=== PATIENT | female | born 1990 | race Asian ===

== ENCOUNTER 2019-03-29 08:23 | Emergency (ER) | payer OTHER, SELFPAY ==
[2019-03-29 08:38] VITALS: BP 152/88; PULSE 96; TEMP 37; O2SAT 98; BMI 24.5
--- NOTE | 2019-03-29 09:00 | ED.PREGNANCY ---
HPI - General Chief complaint: OB/Uterine Contractions Stated complaint: day 3 miscarriage,heavy bleeding Time Seen by Provider: 03/29/19 08:31 Source: patient Mode of arrival: Ambulatory Limitations: no limitations History of Present Illness HPI Narrative: Patient comes emergency department complaining an increase bleeding since onset of miscarriage a few days ago. The patient was diagnosed with in IU of T2 weeks ago, and opted to allow it to pass on its own. She states her bleeding began several days ago with just a light bit of spotting, but that the bleeding has escalated to the point of intermittent severe cramping and gushes of blood and clots. Patient states that she already passed a fair amount of tissue, and that when her OB ultrasounded her 2 days ago, she just had some ?clots and fluid? in her uterus. Patient denies feeling lightheaded or short of breath. no chest pain. No weakness. Patient is otherwise healthy. This is her 1st . Patient denies any easy bruising or bleeding elsewhere. No other complaints at this time. The patient's OB, Dr. Pantoja, who is through the [facility] system, states that the patient is Rh positive. She is not on any pharmacologic agents to help the miscarriage along. Patient : Yes Related Data Allergies Allergy/AdvReac Type Severity Reaction Status Date / Time No Known Drug Allergies Allergy Verified 03/29/19 09:08 Review of Systems Constitutional Constitutional: Denies chills, Denies fatigue, Denies fever(s), Denies frequent falls, Denies lethargy and Denies weakness Eyes Eyes: Denies change in vision, Denies eye discharge, Denies irritation and Denies loss of vision ENT Ears, Nose, Mouth, and Throat: Denies change in voice, Denies dizziness, Denies neck pain, Denies sore throat and Denies throat swelling Cardiovascular Cardiovascular: Denies chest pain, Denies irregular heart rhythm, Denies lightheadedness, Denies palpitations, Denies dyspnea, Denies dyspnea on exertion and Denies orthopnea Respiratory Respiratory: Denies cough, Denies dyspnea, Denies dyspnea on exertion and Denies wheezing Gastrointestinal Gastrointestinal: Reports abdominal pain (Cramping), Denies change in bowel habits, Denies diarrhea, Denies nausea and Denies vomiting Genitourinary Genitourinary: Denies hematuria, Denies flank pain, Denies urinary incontinence and Denies urinary urgency Comments: Vaginal Musculoskeletal Musculoskeletal: Denies back pain, Denies muscle weakness, Denies neck pain, Denies numbness and Denies tingling Integumentary/Breasts Skin/Breast: Denies pruritus, Denies erythema, Denies rash and Denies wounds Neurologic Neurologic: Denies behavioral changes, Denies confusion, Denies dizziness, Denies frequent falls, Denies loss of vision, Denies numbness, Denies tingling and Denies weakness Psychiatric Psychiatric: Denies anxiety, Denies behavioral changes, Denies confusion, Denies depression, Denies homicidal ideation and Denies suicidal ideation Endocrine Endocrine: Denies fatigue, Denies flushing and Denies palpitations Hematologic/Lymphatic Hematologic/Lymphatic: Denies easy bruising Allergic/Immunologic Allergic/Immunologic: Denies urticaria, Denies throat swelling and Denies wheezing PMFSH - Past Medical History Medical history: Reports no medical history Surgical history: Reports no surgical history Patient : Yes Family History Family history: Reports no significant family history Exam Initial Vital Signs Initial Vital Signs: Vital Signs Temperature 98.6 F 03/29/19 08:38 Pulse Rate 96 H 03/29/19 08:38 Blood Pressure 152/88 H 03/29/19 08:38 Pulse Oximetry 98 03/29/19 08:38 Const General: cooperative and well developed Nutritional Appearance: well nourished Orientation: alert, awake, oriented x3 and not confused [facility] Head: normocephalic and atraumatic Ears: external ears normal Nose: external nose normal and No nasal discharge Face and sinus: face symmetric and No dry mucous membranes Mouth: oral mucosae normal and moist mucous membranes Teeth and gingiva: dentition normal Eyes General: appearance normal, both eyes and all related structures Eyelids: eyelids normal Conjunctivae: conjunctivae normal Sclera: sclerae normal Pupils: PERRL EOM: EOM intact bilaterally Neck Neck: normal visual inspection, trachea midline, No lymphadenopathy, No midline deformity and No JVD Lymphatic: No lymphedema Chest Chest: normal inspection of the chest Resp Effort & Inspection: normal respiratory effort, able to speak in complete sentences, no respiratory distress and no use of accessory muscles Auscultation: clear to auscultation bilaterally, no rales, no rhonchi and no wheezes Cardio Rate: regular rate Rhythm: regular rhythm Heart Sounds: no click, no gallops, no murmurs and no rubs Pulses: normal peripheral pulses GI Inspection: non-distended Palpation: soft, no hepatosplenomegaly, No guarding, No pulsatile mass and No tender Auscultation: normal bowel sounds External Female Exam: external appearance normal Speculum Exam - Vagina: vaginal bleeding (Moderate, with small clots in os) Speculum Exam - Cervix: cervical os open (1.5 cm) Bimanual Exam- Vagina & Uterus: normal bimanual exam and normal vaginal palpation Bimanual Exam- Adnexa, other: normal adnexae OB/External & Speculum: cervical os open (1.5 cm) and vaginal bleeding (Moderate, with small clots in os) Back/Spine/Pelvis Back: No CVA tenderness Cervical Spine: cervical ROM normal and No pain with cervical ROM Thoracic/Lumbar Spine: thoracic and lumbar spine normal to inspection Skin General: no rashes or lesions noted, No jaundice and No petechiae Neuro General: alert, oriented x3, gait normal and no focal motor deficits Speech: speech normal Extrem General: full ROM, no clubbing, cyanosis or edema, no pedal edema and no calf tenderness Psych Appearance: well kempt Mental Status: mental status grossly normal Attitude: cooperative Thought Content: normal and suicidality Judgment: judgment good Course Course Course Narrative: I spoke with Dr. Rodriguez prior to the patient's arrival, and after examining the patient she was re-evaluated with ultrasound. This did show a mild amount of clots and fluid in the patient's lower uterus. I spoke with Dr. Pantoja again, who stated that the patient follow up her in clinic within the next several days. Orders Ordered: Discontinued Medications Sodium Chloride (Normal Saline 0.9%) 1,000 mls @ 1,000 mls/hr IV BOLUS ONE Stop: 03/29/19 09:58 Last Infusion: 03/29/19 10:50 Dose: 0 mls/hr Documented by: Admin: 03/29/19 09:40 Dose: 1,000 mls/hr Documented by: JASON Vital Signs Vital signs: Vital Signs - 8 hr 03/29/19 08:38 Temperature 98.6 F Pulse Rate 96 H Blood Pressure 152/88 H Pulse Oximetry 98 MDM - OB/Uterine Contractions Medical Records Attestation: I reviewed the patient's medical records. Lab Data Attestation: I reviewed the patient's lab results. Result diagrams: 03/29/19 09:38 Labs: Lab Results 03/29/19 03/29/19 Range/Units 09:38 09:38 WBC 8.6 (4.5-11.0) X10^3/uL RBC 4.10 (4.0-5.2) X10^6/uL Hgb 12.9 (12.0-16.0) g/dL Hct 37.0 (36-46) % MCV 90.2 (80-100) fL MCH 31.5 (26-34) PG MCHC 34.9 (30-36) % RDW 12.0 (11.6-14.8) % Plt Count 222 (150-400) X10^3/uL Neut % (Auto) 85.0 H (50-75) % Lymph % (Auto) 10.6 L (25-40) % [place] % (Auto) 3.6 (3-14) % Eos % (Auto) 0.5 L (2-4) % Baso % (Auto) 0.3 (0-2) % Neut # (Auto) 7300 H (9297-8785) /uL Lymph # (Auto) 900 L (3140-3688) /uL [place] # (Auto) 300 (0-900) /uL Eos # (Auto) 0 (0-450) /uL Baso # (Auto) 0 (0-100) /uL PT 11.6 (10.1-12.7) SECONDS INR 1.0 (0.9-1.3) Imaging Data Ultrasound OB/pelvis: Radiologist's impression: PROCEDURE: US PELVIC COMPLETE INDICATIONS: AB IN PROGRESS; POSSIBLE RPOC TECHNIQUE: Real-time scanning was performed of the pelvic organs, with image documentation. Additional endovaginal scanning was necessary due to incomplete visualization of the adnexal and endometrial structures by transabdominal scanning. COMPARISON: None. FINDINGS: Transabdominal scanning: Limited scanning through the kidneys shows no hydronephrosis. No pathologic free abdominal or pelvic fluid. Endovaginal scanning: Uterus: Uterus is normal in size at 10.2 x 5.0 x 5.6 cm. The endometrium measures 12.7 mm in combined thickness. There is no visualized intrauterine . Complex focus of ill-defined fluid is present along the lower uterine segment. Ovaries: Right ovary measures 22 x 17 x 18 mm. It is unremarkable. Left ovary is not visualized. Adnexa is unremarkable. IMPRESSION: 1. No visualized intrauterine or ectopic . 2. Complex focus of heteroechogenicity within the lower uterine segment. It is suggestive of fluid. Given history, recommend continued interval followup the correlation with beta-hCG levels. Dictated by: Clarissa Nance M.D. on 03/29/2019 at 8:46 Approved by: Clarissa Nance M.D. on 03/29/2019 at 8:49 Discharge Plan Departure Patient Disposition: Home Clinical Impression: Miscarriage Discharge Date/Time: 03/29/19 11:23 Instructions: DI for Miscarriage Activity Restrictions/Additional Instructions: Your ultrasound shows the amount of blood in clots in your uterus is decreasing, and that you have passed all of the related tissue. As such, the process of miscarriage has completed and your body is now in the process of shedding the remaining blood. Your case has been discussed with Dr. Rodriguez, who would like to see you in follow-up in her clinic. If her bleeding continues to be light to moderate, then you may keep her appointment with her as scheduled for Wednesday. If you develop severe pain or heavy bleeding that does not remit on its own within an hour to, then please return to the emergency department.
[2019-03-29] MEDS: SODIUM CHLORIDE 0.9% 1,000 ML 1000 ML IV (09:40)
[2019-03-29 09:50] LABS: Add Manual Diff / Slide Review NO; Basophils Absolute Auto 0 /uL (0-100); Basophils Percent Auto 0.3 % (0-2); Eosinophils Absolute Auto 0 /uL (0-450); Eosinophils Percent Auto 0.5 % (2-4); Hemoglobin 12.9 g/dL (12.0-16.0); Lymphocytes Absolute Auto 900 /uL (1100-4500); Lymphocytes Percent Auto 10.6 % (25-40); Mean Corpuscular HGB Conc 34.9 % (30-36); Mean Corpuscular Hemoglobin 31.5 PG (26-34); Mean Corpuscular Volume 90.2 fL (80-100); Monocytes Absolute Auto 300 /uL (0-900); Monocytes Percent Auto 3.6 % (3-14); Neutrophils Absolute Auto 7300 /uL (1500-7000); Platelet Count 222 X10^3/uL (150-400); White Blood Cell Count 8.6 X10^3/uL (4.5-11.0)
[2019-03-29 09:58] LABS: Prothrombin Time 11.6 SECONDS (10.1-12.7)
[2019-03-29 10:00] VITALS: BP 101/48; PULSE 84; O2SAT 100
[2019-03-29 11:00] VITALS: BP 101/55; PULSE 81; RESP 16; O2SAT 99
== END 2019-03-29 11:23 | disposition home or self-care (01) ==
PROVIDERS: Emergency Provider Emergency Medicine
DX: O03.9 Complete or unspecified spontaneous abortion without complication (principal)
CPT/HCPCS: 36415; 76830; 76856; 85025; 85610; 96360; 99283; 99284